=== PATIENT | female | born 1975 | race American Indian/Alaskan Native ===

== ENCOUNTER 2018-09-25 09:35 | Outpatient (CLI) | payer OTHER ==
--- NOTE | 2018-09-25 10:14 | XRay Report ---
AP AND LATERAL LUMBOSACRAL SPINE: History: Pain The vertebral bodies are well mineralized and normal in alignment and vertebral height with well preserved interspace distances. The visualized portions of the posterior elements are normal. IMPRESSION: Normal study.
--- NOTE | 2018-09-25 10:15 | XRay Report ---
RIGHT HIP, 2 views: History: Pain. The bony architecture is intact without evidence of fracture or dislocation. No significant soft tissue abnormality is seen. IMPRESSION: Normal right hip.
== END 2018-09-25 09:36 | disposition home or self-care (01) ==
LOC: XRAY 09:35
PROVIDERS: ATTEND Rehabilitation Practitioner
DX: M54.5 Low back pain (principal); M25.551 Pain in right hip
CPT/HCPCS: 72100